=== PATIENT | female | born 1965 | race Caucasian/White ===

== ENCOUNTER 2022-06-02 08:55 | Day surgery (SDC) | payer BC, OTHER ==
[2022-05-31 15:31] VITALS: BMI 25.4
[~2022-06-02 08:55] MED LIST: LACTATED RINGERS 1,000 ML IV SCH
[2022-06-02 09:58] VITALS: TEMP 98.3
[2022-06-02] MEDS ORDERED: PROPOFOL 10 MG/ML 20 ML VIAL IV ONE (10:48)
--- NOTE | 2022-06-02 11:15 | P.PCN ---
Date of Procedure: 06/02/22 Procedure(s) Performed: BRIEF HISTORY: Patient is a 56-year-old pleasant white female scheduled for an elective colonoscopy as a part of screening for colon cancer and family history of colon cancer diagnosed in her father. PROCEDURE PERFORMED: Colonoscopy. PREOPERATIVE DIAGNOSIS: Screening for colon cancer/family history of colon cancer IV sedation per Anesthesia. PROCEDURE: After informed consent was obtained, the patient, was brought into the endoscopy unit. IV sedation was administered by Anesthesia under continuous monitoring. Digital rectal examination was normal. Initially the Olympus CF-160 flexible video colonoscope was then inserted in the rectum, gradually advanced into the cecum without any difficulty. Careful examination was performed as the scope was gradually being withdrawn. Ileocecal valve and the appendiceal orifice were visualized and appeared normal. Prep was some areas of the colon. Mucosa of the cecum, ascending colon, transverse colon, descending colon, sigmoid colon, and rectum appeared normal. Retroflexion was performed in the rectum and no lesions were seen. The patient tolerated the procedure well. IMPRESSION: Normal-appearing colon from rectum to cecum with no evidence of colorectal neoplasia. RECOMMENDATIONS: Findings of this examination were discussed with the patient as well as a family.. She was advised to have a repeat colonoscopy in 5 years from now because of family history of colon cancer
[2022-06-02 11:20] VITALS: RESP 16
[2022-06-02 11:40] VITALS: BP 95/51; PULSE 71
== END 2022-06-02 12:15 | disposition home or self-care (01) ==
LOC: ORWHC2ENDO 08:55
PROVIDERS: ATTEND Internal Medicine Gastroenterology
DX: Z12.11 Encounter for screening for malignant neoplasm of colon (principal); F39 Unspecified mood [affective] disorder; Z79.82 Long term (current) use of aspirin; Z79.899 Other long term (current) drug therapy; Z80.0 Family history of malignant neoplasm of digestive organs
CPT/HCPCS: 45378; J2704

== ENCOUNTER 2024-11-26 18:43 | Inpatient (IN) | payer BC, OTHER ==
--- NOTE | 2024-11-26 19:03 | ED ---
General Adult HPI - General Chief complaint: Recheck/Abnormal Lab/Rx Stated complaint: ABN Labs Time Seen by Provider: 11/26/24 18:50 Source: patient, RN notes reviewed, old records reviewed - History of Present Illness Initial comments: This is a 58-year-old female who presents emergency department stating that she has had about 3 months of feeling a little short of breath so she finally went to Dr. Ramos. Dr. Ramos ordered a CAT scan and it showed a saddle pulmonary embolism with bilateral pulmonary emboli. Patient was told to come to the emergency department immediately. Patient states she walked 6500 steps today she only feels a little short of breath but she does not feel bad at all she has no chest pain no palpitations patient denies any fever chills. - Related Data Home Medications Medication Instructions Recorded Confirmed Aspirin [Adult Low Dose Aspirin EC] 81 mg PO DAILY 06/07/16 06/02/22 Escitalopram [Lexapro] 10 mg PO DAILY 06/07/16 06/02/22 Multivitamins, Thera [Multivitamin] 1 tab PO DAILY 06/07/16 06/02/22 Trospium Chloride [Sanctura] 20 mg PO DAILY 06/07/16 06/02/22 estradioL [Imvexxy] 4 mcg VAGINAL TUFR 05/31/22 06/02/22 Allergies Allergy/AdvReac Type Severity Reaction Status Date / Time morphine AdvReac Itching Verified 11/26/24 18:50 Review of Systems ROS Statement: Those systems with pertinent positive or pertinent negative responses have been documented in the HPI. ROS Other: All systems not noted in ROS Statement are negative. Past Medical History Past Medical History: No Reported History History of Any Multi-Drug Resistant Organisms: None Reported Past Surgical History: Section, Hysterectomy Additional Past Surgical History / Comment(s): Jaw surgery; BILAT plantar fascitis, COLONOSCOPY, LT BUNIONECTOMY Past Anesthesia/Blood Transfusion Reactions: Motion Sickness Past Psychological History: Depression Smoking Status: Never smoker - Past Family History Mother Family Medical History: Cancer General Exam - General Exam Comments Initial Comments: GENERAL: Patient is well-developed and well-nourished. Patient is nontoxic and well- hydrated and is in no acute distress. ENT: Neck is soft and supple. No significant lymphadenopathy is noted. Oropharynx is clear. Moist mucous membranes. Neck has full range of motion without eliciting any pain. EYES: The sclera were anicteric and conjunctiva were pink and moist. Extraocular movements were intact and pupils were equal round and reactive to light. Eyelids were unremarkable. PULMONARY: Unlabored respirations. Good breath sounds bilaterally. No audible rales rhonchi or wheezing was noted. CARDIOVASCULAR: There is a regular rate and rhythm without any murmurs gallops or rubs. ABDOMEN: Soft and nontender with normal bowel sounds. SKIN: Skin is clear with no lesions or rashes and otherwise unremarkable. NEUROLOGIC: Patient is alert and oriented x3. Cranial nerves II through XII are grossly intact. Motor and sensory are also intact. Normal speech, volume and content. Symmetrical smile. MUSCULOSKELETAL: Normal extremities with adequate strength and full range of motion. No lower extremity swelling or edema. No calf tenderness. LYMPHATICS: No significant lymphadenopathy is noted PSYCHIATRIC: Normal psychiatric evaluation. Course Vital Signs 11/26/24 11/26/24 11/26/24 18:45 18:50 19:08 Temperature 97.8 F Pulse Rate 102 H 86 Respiratory 18 20 18 Rate Blood Pressure 150/83 139/69 O2 Sat by Pulse 95 98 Oximetry 11/26/24 19:23 Temperature Pulse Rate 84 Respiratory 18 Rate Blood Pressure 139/69 O2 Sat by Pulse 99 Oximetry Medical Decision Making - Medical Decision Making EKG is interpreted by myself and EKG shows a sinus rhythm at 87 bpm OR was on 44 QRS is 96 QT interval 368 QTc is 412. Patient's EKG shows no ST segment elevat ion or depression. Was pt. sent in by a medical professional or institution (, PA, [employer], urgent ca re, hospital, or penitentiary...) When possible be specific @ -No Did you speak to anyone other than the patient for history (EMS, parent, family, police, friend...)? What history was obtained from this source @ -No Did you review nursing and triage notes (agree or disagree)? Why? @ -I reviewed and agree with nursing and triage notes Were old charts reviewed (outside hosp., previous admission, EMS record, old EKG, old radiological studies, urgent care reports/EKG's, penitentiary records)? Report findings @ -No old charts were reviewed Differential Diagnosis? @ -Differential Dyspnea: Coronary syndrome, arrhythmia, tamponade, asthma, COPD, pulmonary embolism, pneumonia, pneumothorax, pulmonary effusion, anaphylaxis, diabetic ketoacidosis, flailed chest, pulmonary contusion, diaphragmatic rupture, anemia, neuromuscular, this is not meant to be an all-inclusive list. EKG interpreted by me (3pts min.). @ -As above X-rays interpreted by me (1pt min.). @ -None done CT interpreted by me (1pt min.). @ -None done U/S interpreted by me (1pt. min.). @ -None done What testing was considered but not performed or refused? (CT, X-rays, U/S, labs)? Why? @ -None What meds were considered but not given or refused? Why? @ -None Did you discuss the management of the patient with other professionals (professionals i.e. , PA, [employer], lab, RT, psych nurse, social media designer, lawyer real estate, teacher, commercial loan collection officer, correctional case manager)? Give summary @ -I discussed this case with the significant hospitalist and they agreed to admit the patient Was smoking cessation discussed for >3mins.? @ -No Was critical care preformed (if so, how long)? @ -35 minutes Were there social determinants of health that impacted care today? How? (Homelessness, low income, unemployed, alcoholism, drug addiction, transportation, low edu. Level, literacy, decrease access to med. care, assisted, rehab)? @ -No Was there de-escalation of care discussed even if they declined (Discuss DNR or withdrawal of care, Hospice)? DNR status @ -No What co-morbidities impacted this encounter? (DM, HTN, Smoking, COPD, CAD, Cancer, CVA, ARF, Chemo, Hep., AIDS, mental health diagnosis, sleep apnea, morbid obesity)? @ -None Was patient admitted / discharged? Hospital course, mention meds given and route, prescriptions, significant lab abnormalities, going to OR and other pertinent info. @ -I reviewed the patient's outpatient CAT scan that showed bilateral PEs with a saddle embolus. Patient was having only minimal symptoms. Patient received high dose heparin I admitted the patient to [facility] hospice with a consult to vascular surgery Undiagnosed new problem with uncertain prognosis? @ -No Drug Therapy requiring intensive monitoring for toxicity (Heparin, Nitro, Insulin, Cardizem)? @ -No Were any procedures done? @ -No Diagnosis/symptom? @ -Pulmonary embolism Acute, or Chronic, or Acute on Chronic? @ -Acute Uncomplicated (without systemic symptoms) or Complicated (systemic symptoms)? @ -Complicated Side effects of treatment? @ -No Exacerbation, Progression, or Severe Exacerbation? @ -No Poses a threat to life or bodily function? How? (Chest pain, [place], [place], pneumonia, PE, COPD, DKA, ARF, appy, cholecystitis, CVA, Diverticulitis, Homicidal, Suicidal, threat to staff... and all critical care pts) @ -Yes this can lead to endorgan dysfunction - Lab Data Result diagrams: 11/26/24 18:57 11/26/24 18:57 Lab Results 11/26/24 11/26/24 11/26/24 Range/Units 18:57 18:57 18:57 WBC 4.72 (4.50-10.00) 10*3/uL RBC 4.72 (4.10-5.20) 10*6/uL Hgb 12.1 (12.0-15.0) g/dL Hct 37.8 (37.2-46.3) % MCV 80.1 (80.0-97.0) fL MCH 25.6 L (27.0-32.0) pg MCHC 32.0 (32.0-37.0) g/dL Plt Count 103 L (140-440) 10*3/uL MPV 10.8 (9.5-12.2) fL Immature Gran % (Auto) 0.4 % Neutrophils % 47.8 % Lymphocytes % 32.2 % Monocytes % 11.7 % Eosinophils % 6.4 % Basophils % 1.5 % Immature Gran # 0.02 (0.00-0.04) 10*3/uL Neutrophils # 2.26 (1.80-7.70) 10*3/uL Lymphocytes # 1.52 (0.90-5.00) 10*3/uL Monocytes # 0.55 (0.20-1.00) 10*3/uL Eosinophils # 0.30 (0.04-0.35) 10*3/uL Basophils # 0.07 (0.00-0.10) 10*3/uL PT 10.6 (10.0-12.5) sec INR 0.9 (<1.2) APTT 25.7 (22.0-30.0) sec Sodium 138 (137-145) mmol/L Potassium 3.6 (3.5-5.1) mmol/L Chloride 105 (98-107) mmol/L Carbon Dioxide 26 (22-30) mmol/L Anion Gap 7 mmol/L BUN 13 (7-17) mg/dL Creatinine 0.77 (0.52-1.04) mg/dL Est GFR (CKD-EPI)AfAm >90 (>60 ml/min/1.73 sqM) Est GFR (CKD-EPI)NonAf 86 (>60 ml/min/1.73 sqM) Glucose 92 (74-99) mg/dL Plasma Lactic Acid Noel (0.7-2.0) mmol/L Calcium 9.1 (8.4-10.2) mg/dL Total Bilirubin 0.4 (0.2-1.3) mg/dL AST 28 (14-36) U/L ALT 16 (4-34) U/L Alkaline Phosphatase 79 (38-126) U/L Troponin I (0.000-0.034) ng/mL Total Protein 7.0 (6.3-8.2) g/dL Albumin 4.2 (3.5-5.0) g/dL 11/26/24 11/26/24 Range/Units 18:57 18:57 WBC (4.50-10.00) 10*3/uL RBC (4.10-5.20) 10*6/uL Hgb (12.0-15.0) g/dL Hct (37.2-46.3) % MCV (80.0-97.0) fL MCH (27.0-32.0) pg MCHC (32.0-37.0) g/dL Plt Count (140-440) 10*3/uL MPV (9.5-12.2) fL Immature Gran % (Auto) % Neutrophils % % Lymphocytes % % Monocytes % % Eosinophils % % Basophils % % Immature Gran # (0.00-0.04) 10*3/uL Neutrophils # (1.80-7.70) 10*3/uL Lymphocytes # (0.90-5.00) 10*3/uL Monocytes # (0.20-1.00) 10*3/uL Eosinophils # (0.04-0.35) 10*3/uL Basophils # (0.00-0.10) 10*3/uL PT (10.0-12.5) sec INR (<1.2) APTT (22.0-30.0) sec Sodium (137-145) mmol/L Potassium (3.5-5.1) mmol/L Chloride (98-107) mmol/L Carbon Dioxide (22-30) mmol/L Anion Gap mmol/L BUN (7-17) mg/dL Creatinine (0.52-1.04) mg/dL Est GFR (CKD-EPI)AfAm (>60 ml/min/1.73 sqM) Est GFR (CKD-EPI)NonAf (>60 ml/min/1.73 sqM) Glucose (74-99) mg/dL Plasma Lactic Acid Noel 0.7 (0.7-2.0) mmol/L Calcium (8.4-10.2) mg/dL Total Bilirubin (0.2-1.3) mg/dL AST (14-36) U/L ALT (4-34) U/L Alkaline Phosphatase (38-126) U/L Troponin I 0.013 (0.000-0.034) ng/mL Total Protein (6.3-8.2) g/dL Albumin (3.5-5.0) g/dL Disposition Clinical Impression: Pulmonary embolism Disposition: ADMITTED IP TO THIS HOSP Referrals: Stanton Justice DO [Primary Care Provider] - 1-2 days Time of Disposition: 20:37
[2024-11-26 19:16] LABS: Basophils # (A) 0.07 10*3/uL (0.00-0.10); Basophils % (A) 1.5 %; Eosinophils % (A) 6.4 %; HCT 37.8 % (37.2-46.3); HGB 12.1 g/dL (12.0-15.0); Lymphocytes # (A) 1.52 10*3/uL (0.90-5.00); Lymphocytes % (A) 32.2 %; MCH 25.6 pg (27.0-32.0); MCV 80.1 fL (80.0-97.0); Mean Platelet Volume 10.8 fL (9.5-12.2); Monocytes # (A) 0.55 10*3/uL (0.20-1.00); Monocytes % (A) 11.7 %; Neutrophils # (A) 2.26 10*3/uL (1.80-7.70); Neutrophils % (A) 47.8 %; Platelet Count 103 10*3/uL (140-440); RBC 4.72 10*6/uL (4.10-5.20); RDW 15.6 % (11.5-14.5); WBC 4.72 10*3/uL (4.50-10.00)
[2024-11-26 19:25] LABS: INR 0.9 (<1.2); Partial Thromboplastin Time 25.7 sec (22.0-30.0); Prothrombin Time 10.6 sec (10.0-12.5)
[2024-11-26 19:29] LABS: ALT 16 U/L (4-34); AST 28 U/L (14-36); African American GFR (CKD) >90 (>60 ml/min/1.73 sqM); Albumin 4.2 g/dL (3.5-5.0); Alkaline Phosphatase 79 U/L (38-126); Anion Gap 7 mmol/L; Blood Urea Nitrogen 13 mg/dL (7-17); Calcium 9.1 mg/dL (8.4-10.2); Carbon Dioxide 26 mmol/L (22-30); Chloride 105 mmol/L (98-107); Glucose 92 mg/dL (74-99); Non-African American GFR(CKD) 86 (>60 ml/min/1.73 sqM); Potassium 3.6 mmol/L (3.5-5.1); Sodium 138 mmol/L (137-145); Total Bilirubin 0.4 mg/dL (0.2-1.3)
[2024-11-26] MEDS: HEPARIN SOD,PORK IN 0.45% NACL 25,000 UNIT in 0.45% NACL 1 250ML.BAG IV SCH (19:32)
[2024-11-26] MEDS: HEPARIN SODIUM 1,000 UN/ML (10ML VL) IV ONE (19:34)
[2024-11-26] MEDS: SODIUM CHLORIDE 0.9% 1,000 ML IV ONE (21:01)
--- NOTE | 2024-11-27 12:10 | US ---
EXAMINATION TYPE: US venous doppler duplex LE BI DATE OF EXAM: 11/27/2024 11:41 AM COMPARISON: NONE CLINICAL INDICATION: Female, 58 years old with history of PE; On IV heparin, Pain TECHNIQUE: The lower extremity deep venous system is examined utilizing real time linear array sonog tali with graded compression, color doppler sonography, and spectral doppler. SIDE PERFORMED: Bilateral FINDINGS: VESSELS IMAGED: Common Femoral Vein Deep Femoral Vein Greater Saphenous Vein * Femoral Vein Popliteal Vein Small Saphenous Vein * Proximal Calf Veins (* superficial vessels) Right Leg: Positive for DVT in the popliteal vein to calf veins. Color Doppler imaging shows patency of the vessels. Spectral waveforms are within normal limits. Left Leg: Positive for DVT in the popliteal vein with thready flow seen, Color Doppler imaging shows patency of the vessels. Spectral waveforms are within normal limits. IMPRESSION: Acute DVT is in the popliteal veins bilaterally extending into the posterior tibial veins. There is i nvolvement of the proximal popliteal vein on the right with complete occlusion above the knee noted. [facility], , 11/27/2024 12:07 PM
--- NOTE | 2024-11-27 12:17 | P.CRDCN ---
History of Present Illness Consult date: 11/27/24 Reason for Consult (text): Pulmonary embolism. History of present illness: This is a 58-year-old female with no previous cardiac history and does not follow with a svp of digital. We have been asked to evaluate the patient for pulmonary embolism. Patient gives history that she had hip replacement surgery done in June 2020 for and she states that since August when she was working with physical therapy she developed shortness of breath. She states she was having difficulty walking due to the shortness of breath. No chest pain or chest pressure no chest tightness. Dr. Rae ordered CTA of the chest which found bilateral pulmonary emboli with saddle embolus. Patient was admitted to the hospital and started on heparin drip. She denies shortness of breath at rest. No dizziness or lightheadedness. Blood pressure 113/73, heart rate 68, pulse ox 96% on room air. Patient is a non-smoker, no alcohol abuse. -EKG: Sinus rhythm with no acute ST-T wave changes. No evidence of right heart strain. -Venous duplex bilateral lower extremities showed acute DVT in the popliteal veins bilaterally. -Laboratory studies: Platelet count 103 otherwise lab work is unremarkable. Troponin is negative x 1. -Home cardiac medications: None Review Of Systems: At the time of my exam: CONSTITUTIONAL: Denies fever or chills. HEENT: Denies blurred vision, vision changes, or eye pain. Denies hemoptysis CARDIOVASCULAR: Denies chest pain. Denies orthopnea. Denies PND. Denies palpitations RESPIRATORY: Denies shortness of breath. Reports dyspnea on exertion GASTROINTESTINAL: Denies abdominal pain. Denies nausea or vomiting. HEMATOLOGIC: Denies bleeding disorders. GENITOURINARY: Denies any blood in urine. SKIN: Denies puritis. Denies rash. Physical examination: Gen: This is a 58-year-old female in no acute distress VS: reviewed HEENT: Head is atraumatic, normocephalic. Pupils equal, round. Sclerae is anicteric. NECK: Supple. No JVD. LUNGS: Clear to auscultation. No wheezes or rhonchi. No intercostal retractions. HEART: Regular rate and rhythm. No murmur. ABDOMEN: Soft No tenderness. EXTREMITIES: No pedal edema. No calf tenderness. NEUROLOGICAL: Patient is awake, alert and oriented x3. Assessment: Bilateral saddle PE Bilateral lower extremity DVT Recent hip surgery Plan: Continue heparin drip Consult pulmonary medicine Obtain 2-D echocardiogram and Doppler study to assess for right heart strain Further recommendations to follow based upon clinical course Thank you kindly for this consultation. Nurse practitioner note has been reviewed, I agree with documented findings and plan of care. Patient was seen and examined. Past Medical History Past Medical History: No Reported History History of Any Multi-Drug Resistant Organisms: None Reported Past Surgical History: Section, Hysterectomy, Joint Replacement Additional Past Surgical History / Comment(s): Jaw surgery; BILAT plantar fa scitis, COLONOSCOPY, LT BUNIONECTOMY, hip replacement. Past Anesthesia/Blood Transfusion Reactions: Motion Sickness Past Psychological History: Depression Smoking Status: Never smoker Past Alcohol Use History: Occasional Past Drug Use History: None Reported - Past Family History Mother Family Medical History: Cancer Medications and Allergies Home Medications Medication Instructions Recorded Confirmed Type Multivitamins, Thera [Multivitamin] 1 tab PO DAILY 06/07/16 11/27/24 History Trospium Chloride [Sanctura] 20 mg PO DAILY 06/07/16 11/27/24 History Calcium(Unknown Dose) 1 tab PO HS 11/27/24 11/27/24 History Ciclopirox Olamine [Loprox 0.77% 1 applic TOPICAL BID PRN 11/27/24 11/27/24 History cream] Co Q-10(Unknown Dose) 1 cap PO DAILY 11/27/24 11/27/24 History Escitalopram [Lexapro] 10 mg PO DIRECTED 11/27/24 11/27/24 History Fish Oil(Unknown Dose) 1 cap PO DAILY 11/27/24 11/27/24 History Fluocinonide 0.05% Solution 1 applic TOPICAL BID PRN 11/27/24 11/27/24 History Glucosam/Vimal-Msm1/C/Matthew/Bosw 1 tab PO DAILY 11/27/24 11/27/24 History [Glucosamine-Chondroitin Tablet] Magnesium(Unknown Dose) 1 tab PO HS 11/27/24 11/27/24 History Turmeric(Unknown Dose) 1 tab PO DAILY 11/27/24 11/27/24 History Vitamin D3(Unknown Dose) 1 tab PO HS 11/27/24 11/27/24 History estradioL [Vagifem] 10 mcg VAGINAL TUFR 11/27/24 11/27/24 History Allergies Allergy/AdvReac Type Severity Reaction Status Date / Time morphine AdvReac Itching Verified 11/27/24 10:27 Physical Exam Vitals: Vital Signs Temp Pulse Pulse Resp BP BP Pulse Ox 11/27/24 04:00 98 F 78 17 107/67 98 11/27/24 02:26 97.8 F 72 16 131/76 94 L 11/27/24 00:09 67 18 117/65 99 11/26/24 23:07 80 18 126/69 95 11/26/24 21:08 76 18 114/74 95 11/26/24 19:23 84 18 139/69 99 11/26/24 19:08 18 11/26/24 18:50 86 20 139/69 98 11/26/24 18:45 97.8 F 102 H 18 150/83 95 Intake and Output 11/26/24 11/27/24 11/27/24 22:59 06:59 14:59 Intake Total 88.163 Balance 88.163 Intake: Intake, IV Titration 88.163 Amount Heparin Sod,Pork in 0.45% 88.163 NaCl 25,000 unit In 0.45 % NaCl 1 250ml.bag @ 18 UNITS/KG/HR 12.655 mls/hr IV [id number] [facility] Rx#: [id number] Other: # Voids 2 1 Weight 70.307 kg 69.1 kg Results 11/26/24 18:57 11/26/24 18:57 Cardiac Enzymes 11/26/24 11/26/24 Range/Units 18:57 18:57 AST 28 (14-36) U/L Troponin I 0.013 (0.000-0.034) ng/mL Coagulation 11/26/24 11/27/24 Range/Units 18:57 01:31 PT 10.6 (10.0-12.5) sec APTT 25.7 >200.0 H* (22.0-30.0) sec CBC 11/26/24 Range/Units 18:57 WBC 4.72 (4.50-10.00) 10*3/uL RBC 4.72 (4.10-5.20) 10*6/uL Hgb 12.1 (12.0-15.0) g/dL Hct 37.8 (37.2-46.3) % Plt Count 103 L (140-440) 10*3/uL Comprehensive Metabolic Panel 11/26/24 Range/Units 18:57 Sodium 138 (137-145) mmol/L Potassium 3.6 (3.5-5.1) mmol/L Chloride 105 (98-107) mmol/L Carbon Dioxide 26 (22-30) mmol/L BUN 13 (7-17) mg/dL Creatinine 0.77 (0.52-1.04) mg/dL Glucose 92 (74-99) mg/dL Calcium 9.1 (8.4-10.2) mg/dL AST 28 (14-36) U/L ALT 16 (4-34) U/L Alkaline Phosphatase 79 (38-126) U/L Total Protein 7.0 (6.3-8.2) g/dL Albumin 4.2 (3.5-5.0) g/dL Current Medications Generic Name Dose Route Start Last Admin Trade Name Freq PRN Reason Stop Dose Admin Heparin Sodium/Sodium Chloride 250 mls @ 12.655 mls/hr 11/26/24 19:00 11/27/24 04:53 25,000 unit/ Sodium Chloride IV 14 units/kg/hr [id number] [facility] 9.843 mls/hr Titration Protocol 18 UNITS/KG/HR Sodium Chloride 1,000 mls @ 75 mls/hr 11/26/24 20:38 11/26/24 21:01 Saline 0.9% IV 11/27/24 09:57 75 mls/hr .[id number] Administration Intake and Output 11/26/24 11/27/24 11/27/24 22:59 06:59 14:59 Intake Total 88.163 Balance 88.163 Intake: Intake, IV Titration 88.163 Amount Heparin Sod,Pork in 0.45% 88.163 NaCl 25,000 unit In 0.45 % NaCl 1 250ml.bag @ 18 UNITS/KG/HR 12.655 mls/hr IV .[id number] [facility] Rx#: [id number] Other: # Voids 2 1 Weight 70.307 kg 69.1 kg 11/26/24 18:57 11/26/24 18:57
--- NOTE | 2024-11-27 12:47 | P.CNPUL ---
History of Present Illness Consult date: 11/27/24 Requesting physician: Stanton Justice Reason for consult: dyspnea, chest pain, pulmonary embolism, abnormal CXR/CT Chief complaint: Shortness of breath, pain on inspiration. History of present illness: Pulmonary consult dated November 27, 2024. 58-year-old female who was seen by my partner, and sent to the hospital for a CT scan, to rule out pulmonary embolism. The patient has a history of about 3 months worth of increasing shortness of breath, particular on exertion, and pain sometimes sharp, deep inspiration. The CT scan did not show pulmonary embolism, and the patient was admitted to the hospital, started on IV heparin. The ER physician called me yesterday, because initially, they were going to place the patient in the intensive care unit, but after listening to the story, it was clear to me the patient was stable to be admitted to the cardiology floor. Currently, the patient is resting comfortably in room 378. She is on room air. He has an IV running with IV heparin. She denies any shortness of breath, currently, states that the pain when she takes a deep breath, in her chest, has completely gone away. Interestingly, the patient recently had hip surgery, and also recently took 2 long car rides, to see a family member in [place]. Hence, this pulmonary embolism, is likely provoked, from the hip surgery, and due to long car rides. In addition, the patient tells me she really has no significant past medical history. She recently was seen by her family doctor, a nd treated with breathing treatments, and steroids, without benefit in her shortness of breath. She is a lifelong non-smoker. Current laboratory data includes a white count of 4.7, hemoglobin 12.1, hematocrit 37.8, and a platelet count of 103,000. PTT is 74.1. Her comprehensive metabolic profile is completely normal. Venous Doppler studies of both lower extremities, or both positive for DVT. Chest x-ray was negative. CTA showed bilateral pulmonary emboli, with saddle embolus, no evidence for right heart strain. The patient has been seen by cardiology, and an echocardiogram is currently pending. Review of Systems REVIEW OF SYSTEMS: CONSTITUTIONAL: [Negative.] NEUROLOGIC: [ Negative.] HEENT: [ Negative.] CARDIAC: Chest pain on deep inspiration. PULMONARY: Shortness of breath. Shortness of breath was noted primarily on exertion. GI: [Negative.] : [Negative.] RHEUMATOLOGIC: [ Negative.] IMMUNOLOGIC: [ Negative.] ENDOCRINE: [Negative. ] DERMATOLOGIC: [Negative.] Past Medical History Past Medical History: No Reported History History of Any Multi-Drug Resistant Organisms: None Reported Past Surgical History: Section, Hysterectomy, Joint Replacement Additional Past Surgical History / Comment(s): Jaw surgery; BILAT plantar fascitis, COLONOSCOPY, LT BUNIONECTOMY, hip replacement. Past Anesthesia/Blood Transfusion Reactions: Motion Sickness Past Psychological History: Depression Smoking Status: Never smoker Past Alcohol Use History: Occasional Past Drug Use History: None Reported - Past Family History Mother Family Medical History: Cancer Medications and Allergies Home Medications Medication Instructions Recorded Confirmed Type Multivitamins, Thera [Multivitamin] 1 tab PO DAILY 06/07/16 11/27/24 History Trospium Chloride [Sanctura] 20 mg PO DAILY 06/07/16 11/27/24 History Calcium(Unknown Dose) 1 tab PO HS 11/27/24 11/27/24 History Ciclopirox Olamine [Loprox 0.77% 1 applic TOPICAL BID PRN 11/27/24 11/27/24 History cream] Co Q-10(Unknown Dose) 1 cap PO DAILY 11/27/24 11/27/24 History Escitalopram [Lexapro] 10 mg PO DIRECTED 11/27/24 11/27/24 History Fish Oil(Unknown Dose) 1 cap PO DAILY 11/27/24 11/27/24 History Fluocinonide 0.05% Solution 1 applic TOPICAL BID PRN 11/27/24 11/27/24 History Glucosam/Vimal-Msm1/C/Matthew/Bosw 1 tab PO DAILY 11/27/24 11/27/24 History [Glucosamine-Chondroitin Tablet] Magnesium(Unknown Dose) 1 tab PO HS 11/27/24 11/27/24 History Turmeric(Unknown Dose) 1 tab PO DAILY 11/27/24 11/27/24 History Vitamin D3(Unknown Dose) 1 tab PO HS 11/27/24 11/27/24 History estradioL [Vagifem] 10 mcg VAGINAL TUFR 11/27/24 11/27/24 History Allergies Allergy/AdvReac Type Severity Reaction Status Date / Time morphine AdvReac Itching Verified 11/27/24 10:27 Physical Exam Osteopathic Statement: *. No significant issues noted on an osteopathic structural exam other than those noted in the History and Physical/Consult. Vitals: Vital Signs Temp Pulse Pulse Resp BP BP Pulse Ox 11/27/24 11:37 68 17 113/73 96 11/27/24 08:25 98 F 80 18 123/78 97 11/27/24 04:00 98 F 78 17 107/67 98 11/27/24 02:26 97.8 F 72 16 131/76 94 L 11/27/24 00:09 67 18 117/65 99 11/26/24 23:07 80 18 126/69 95 11/26/24 21:08 76 18 114/74 95 11/26/24 19:23 84 18 139/69 99 11/26/24 19:08 18 11/26/24 18:50 86 20 139/69 98 11/26/24 18:45 97.8 F 102 H 18 150/83 95 Intake and Output 11/26/24 11/27/24 11/27/24 22:59 06:59 14:59 Intake Total 88.163 63.815 Balance 88.163 63.815 Intake: Intake, IV Titration 88.163 63.815 Amount Heparin Sod,Pork in 0.45% 88.163 63.815 NaCl 25,000 unit In 0.45 % NaCl 1 250ml.bag @ 18 UNITS/KG/HR 12.655 mls/hr IV .[id number] [facility] Rx#: [id number] Other: # Voids 2 1 Weight 70.307 kg 69.1 kg No acute distress, oriented 3. HEENT examination is grossly unremarkable. Mucous membranes are moist. No oral lesions. Neck supple. Full range of motion. No adenopathy thyromegaly or neck vein distention. Cardiovascular examination reveals regular rhythm rate. S1-S2 normal. No S3 or S4. No discernible murmur noted. Lungs reveal clear breath sounds. Breath sounds are equal bilaterally. No adventitious lung sounds including wheezes rhonchi or crackles. Abdomen soft bowel sounds are heard. No masses or tenderness. Extremities are intact. No cyanosis clubbing or edema. Skin is without rash or lesion. Neurologic examination is brief but nonfocal. Results - Laboratory Findings CBC and BMP: 11/26/24 18:57 11/26/24 18:57 PT/INR, D-dimer PT 10.6 sec (10.0-12.5) 11/26/24 18:57 INR 0.9 (<1.2) 11/26/24 18:57 Abnormal lab findings: Abnormal Labs 11/26/24 11/27/24 11/27/24 18:57 01:31 10:32 MCH 25.6 L Plt Count 103 L APTT >200.0 H* 74.1 H - Diagnostic Findings Chest x-ray: image reviewed CT scan - chest: image reviewed U/S of Legs: image reviewed Assessment and Plan Assessment: Subacute/chronic shortness of breath, and chest pain on deep inspiration, las ting 3 months, secondary to bilateral pulmonary emboli. Bilateral lower extremity DVTs. Recent hip surgery. 2 recent car rides to [place]. History of depression. Lifelong non-smoker Plan: Plan dated November 27, 2024. The patient was seen today in room 378. She was seen by my partner, and sent over for CT angiogram, and with a CT angiogram was read by radiology, and showed bilateral pulmonary emboli, and saddle pulmonary embolism, the patient was directed to the emergency department. Dr. Ambrocio called me and talk to me about this patient. The patient was admitted to the 3 S. floor. The patient is currently on an IV heparin drip. She is really feeling much better. The cecilia meyer's Doppler that we ordered this morning, showed bilateral DVT. The patient was recently on a car ride to [place] twice, to see a family member. In addition, she states that in June, she had hip surgery. She has been having shortness of breath on exertion, and pain on deep inspiration, for about 3 months. Labs, x-rays, medications are reviewed. We will continue to follow. The patient will follow-up with my partner after discharge. Cardiology has seen the patient. Echocardiogram is pending. CTA did not reveal any right heart strain. Time with Patient: Greater than 30
--- NOTE | 2024-11-27 16:15 | P.HPIM ---
History of Present Illness H&P Date: 11/27/24 Patient is a 58-year-old female with no significant past medical history has been feeling short of breath from last 4 to 5 months and eventually decided to see oil operator Dr. Ramos who order CTA of the chest which was positive for bilateral pulmonary emboli with saddle embolus. Patient reports that she had a right hip surgery done in June 2024 and and more recently she had a long drive close to almost 9 hours in October 2024. Patient otherwise reports no swelling in lower legs. She reports no chest pain, nausea, vomiting, dizziness, acute vision changes. She reports no prior history of DVT, family history of DVT and never been on blood thinners. Initial laboratory workup shows WBC 4.72, hemoglobin 12.1, platelet count 103, sodium 138, potassium 3.6, BUN 30, creatinine 0.77. EKG shows normal sinus rhythm with ventricular rate of 87 bpm, DC interval 144 ms, QRS duration 96 ms, QTc 412. Venous Doppler history shows positive for DVT in popliteal vein in both right lower extremities. Review of systems: Pertinent positives and negatives as discussed in HPI, a complete review of systems was performed and all other systems are negative. Physical examination: Vital signs reviewed General: non toxic, no distress, appears at stated age, normal weight Derm: no unusual rashes/lesions, warm Head: atraumatic, normocephalic, symmetric Eyes: EOMI, no lid lag, anicteric sclera, pupils equal round reactive to light ENT: Nose and ears atraumatic Neck: No cervical lymphadenopathy, trachea midline, supple Mouth: no lip lesion, mucus membranes moist Cardiovascular: S1S2 reg, no murmur, positive dorsalis pedis pulse bilateral, no edema Lungs: CTA bilateral, no rhonchi, no rales, no accessory muscle use Abdominal: soft, nontender to palpation, no guarding Ext: muscle strength 5 out of 5 in all 4 extremities grossly, no gross muscle atrophy, no contractures, Neuro: CN II-XI grossly intact, no gross focal neuro deficits Psych: Alert, oriented, appropriate affect Assessment/Plan: This is a Patient is a 58-year-old female with no significant past medical history has been feeling short of breath from last 4 to 5 months and eventually decided to see oil operator Dr. Ramos who order CTA of the chest which was positive for bilateral pulmonary emboli with saddle embolus. . Case was discussed with the Emergency Room provider and decision was made to admit the patient for non massive pulm embolism Labs and images: CTA of the chest which was positive for bilateral pulmonary emboli with saddle embolus Initial laboratory workup shows WBC 4.72, hemoglobin 12.1, platelet count 103, sodium 138, potassium 3.6, BUN 30, creatinine 0.77. EKG shows normal sinus rhythm with ventricular rate of 87 bpm, DC interval 144 ms, QRS duration 96 ms, QTc 412. Venous Doppler shows positive for DVT in popliteal vein in both right lower extremities. Active: #Non massive pulm embolism likely provoked in the setting of recent history of right hip surgery and long drive CTA of the chest and venous Doppler of lower extremities results as above Start patient on a heparin drip with transition to oral anticoagulation tomorrow Pulmonology on board Patient is hemodynamic stable Order echocardiogram #History of anxiety and depression, Resume Lexapro DVT prophylaxis: IV heparin GI prophylaxis: None F: None E: Replete as needed N: Moderately diet A: Ambulatory at baseline The patient is admitted with an anticipated less than than 2 midnight stay for evaluation of pulm embolism CODE STATUS: Full code Discussed with: Patient Anticipated discharge place: Home Dictation was produced using [employer] dictation software. Please excuse any grammatical, word or spelling errors. Dr. Paz seen patient with resident, present during exam, and agreed with findings. Past Medical History Past Medical History: No Reported History History of Any Multi-Drug Resistant Organisms: None Reported Past Surgical History: Section, Hysterectomy, Joint Replacement Additional Past Surgical History / Comment(s): Jaw surgery; BILAT plantar fascitis, COLONOSCOPY, LT BUNIONECTOMY, hip replacement. Past Anesthesia/Blood Transfusion Reactions: Motion Sickness Past Psychological History: Depression Smoking Status: Never smoker Past Alcohol Use History: Occasional Past Drug Use History: None Reported - Past Family History Mother Family Medical History: Cancer Medications and Allergies Home Medications Medication Instructions Recorded Confirmed Type Multivitamins, Thera [Multivitamin] 1 tab PO DAILY 06/07/16 11/27/24 History Trospium Chloride [Sanctura] 20 mg PO DAILY 06/07/16 11/27/24 History Calcium(Unknown Dose) 1 tab PO HS 11/27/24 11/27/24 History Ciclopirox Olamine [Loprox 0.77% 1 applic TOPICAL BID PRN 11/27/24 11/27/24 History cream] Co Q-10(Unknown Dose) 1 cap PO DAILY 11/27/24 11/27/24 History Escitalopram [Lexapro] 10 mg PO DAILY 11/27/24 11/27/24 History Fish Oil(Unknown Dose) 1 cap PO DAILY 11/27/24 11/27/24 History Fluocinonide 0.05% Solution 1 applic TOPICAL BID PRN 11/27/24 11/27/24 History Glucosam/Vimal-Msm1/C/Matthew/Bosw 1 tab PO DAILY 11/27/24 11/27/24 History [Glucosamine-Chondroitin Tablet] Magnesium(Unknown Dose) 1 tab PO HS 11/27/24 11/27/24 History Turmeric(Unknown Dose) 1 tab PO DAILY 11/27/24 11/27/24 History Vitamin D3(Unknown Dose) 1 tab PO HS 11/27/24 11/27/24 History estradioL [Vagifem] 10 mcg VAGINAL TUFR 11/27/24 11/27/24 History Allergies Allergy/AdvReac Type Severity Reaction Status Date / Time morphine AdvReac Itching Verified 11/27/24 10:27 Physical Exam Vitals: Vital Signs Temp Pulse Pulse Resp BP BP Pulse Ox 11/27/24 04:00 98 F 78 17 107/67 98 11/27/24 02:26 97.8 F 72 16 131/76 94 L 11/27/24 00:09 67 18 117/65 99 11/26/24 23:07 80 18 126/69 95 11/26/24 21:08 76 18 114/74 95 11/26/24 19:23 84 18 139/69 99 11/26/24 19:08 18 11/26/24 18:50 86 20 139/69 98 11/26/24 18:45 97.8 F 102 H 18 150/83 95 Intake and Output 11/26/24 11/27/24 11/27/24 22:59 06:59 14:59 Intake Total 88.163 Balance 88.163 Intake: Intake, IV Titration 88.163 Amount Heparin Sod,Pork in 0.45% 88.163 NaCl 25,000 unit In 0.45 % NaCl 1 250ml.bag @ 18 UNITS/KG/HR 12.655 mls/hr IV .[id number] [facility] Rx#: [id number] Other: # Voids 2 Weight 70.307 kg 69.1 kg Results CBC & Chem 7: 11/26/24 18:57 11/26/24 18:57 Labs: Abnormal Lab Results - Last 24 Hours (Table) 11/26/24 11/27/24 Range/Units 18:57 01:31 MCH 25.6 L (27.0-32.0) pg Plt Count 103 L (140-440) 10*3/uL APTT >200.0 H* (22.0-30.0) sec Thrombosis Risk Factor Assmnt - Choose All That Apply Any of the Below Risk Factors Present?: Yes Each Factor Represents 1 point: Age 41-60 years Other Risk Factors: No Other congenital or acquired thrombophilia - If yes, enter type in comment: No Thrombosis Risk Factor Assessment Total Risk Factor Score: 1 Thrombosis Risk Factor Assessment Level: Low Risk
--- NOTE | 2024-11-27 16:35 | CA ---
Transthoracic Echo Report Name: Vicki Mendez Age: 58 Gender: F : 1965 Exam Date: 11/27/2024 12:01 Exam Location: [facility] Ht (in): 65 Wt (lb): 152 Ordering Physician: Dalia Pimentel Attending/Referring Phys: [id number], Loren Medical Technologist Generalist Deniz Armenta RDCS Procedure CPT: Indications: saddle PE, right heart strain Cardiac Hx: Technical Quality: Good Contrast 1: Total Dose (mL): Contrast 2: Total Dose (mL): MEASUREMENTS (Male / Female) Normal Values 2D ECHO LV Diastolic Diameter PLAX 3.6 cm 4.2 - 5.9 / 3.9 - 5.3 cm LV Systolic Diameter PLAX 2.2 cm IVS Diastolic Thickness 0.9 cm 0.6 - 1.0 / 0.6 - 0.9 cm LVPW Diastolic Thickness 0.9 cm 0.6 - 1.0 / 0.6 - 0.9 cm LV Relative Wall Thickness 0.5 RV Internal Dim ED PLAX 3.4 cm LVOT Diameter 1.8 cm LV Diastolic Volume MOD BP 84.9 cm??? 67 - 155 / 56 - 104 cm??? LV Systolic Volume MOD BP 32.6 cm??? 22 - 58 / 19 - 49 cm??? LV Ejection Fraction MOD BP 61.6 % >= 55 % LV Cardiac Index MOD BP 2133.9 cm???/min???m??? LV Diastolic Volume MOD 4C 83.6 cm??? LV Systolic Volume MOD 4C 32.0 cm??? LV Ejection Fraction MOD 4C 61.7 % LV Cardiac Index MOD 4C 2103.2 cm???/min???m??? LV Diastolic Length 4C 8.0 cm LV Systolic Length 4C 6.1 cm LV Diastolic Volume MOD 2C 86.2 cm??? LV Systolic Volume MOD 2C 32.0 cm??? LV Ejection Fraction MOD 2C 62.9 % LV Cardiac Index MOD 2C 2211.6 cm???/min???m??? LV Diastolic Length 2C 7.9 cm LV Systolic Length 2C 6.4 cm LA Volume 53.7 cm??? 18 - 58 / 22 - 52 cm??? LA Volume Index 30.0 cm???/m??? 16 - 28 cm???/m??? DOPPLER MV Area PHT 3.0 cm??? Mitral E Point Velocity 56.1 cm/s Mitral A Point Velocity 43.1 cm/s Mitral E to A Ratio 1.3 MV Deceleration Time 253.7 ms TR Peak Velocity 261.5 cm/s TR Peak Gradient 27.3 mmHg Right Atrial Pressure 5.0 mmHg Pulmonary Artery Systolic Pressu 32.3 mmHg Right Ventricular Systolic Press 32.3 mmHg FINDINGS Left Ventricle Left ventricular ejection fraction is estimated at 60-65 %. Normal Left ventricular size, wall thickness, systolic function with no obvious regional wall motion abnormalities Right Ventricle Normal right ventricular size and function. Right ventricular systolic pressure within normal limits. Right Atrium Normal right atrial size. Left Atrium Mildly increased left atrial volume. Mitral Valve Mitral annular calcification. No mitral stenosis. Trace mitral regurgitation. Aortic Valve Trileaflet aortic valve. Thickened aortic valve without stenosis. No aortic stenosis. No aortic regurgitation. Tricuspid Valve Structurally normal tricuspid valve. No tricuspid stenosis. Mild tricuspid regurgitation. Pulmonic Valve Structurally normal pulmonic valve. No pulmonic stenosis. No pulmonic regurgitation. Pericardium No pericardial effusion. Aorta Normal size aortic root and proximal ascending aorta. CONCLUSIONS Normal LV size and systolic function with mild concentric LVH. There is mild mitral annular calcification and aortic valve sclerosis without restriction. Right ventricle is of normal size and the right-sided pressures are not significantly elevated. There is mild mitral and tricuspid regurgitation no pericardial effusion. Previewed by: Dr. Oren Blanton MD (Electronically Signed) Final Date: 27 Nov 2024 16:34
[2024-11-27] MEDS: ESCITALOPRAM 10 MG TAB PO SCH (17:29)
[2024-11-27] MEDS: ACETAMINOPHEN TAB 325 MG TAB PO PRN (18:22)
[2024-11-28 05:21] VITALS: TEMP 98.3
[2024-11-28 08:53] VITALS: BP 121/71; PULSE 88; RESP 16
[2024-11-28] MEDS: Apixaban Initiation Dose--VTE 5 MG TAB PO SCH (10:03)
--- NOTE | 2024-11-28 12:08 | P.PN ---
Subjective Progress Note Date: 11/28/24 Principal diagnosis: Shortness of breath. Pulmonary consult dated November 27, 2024. 58-year-old female who was seen by my partner, and sent to the hospital for a CT scan, to rule out pulmonary embolism. The patient has a history of about 3 months worth of increasing shortness of breath, particular on exertion, and pain sometimes sharp, deep inspiration. The CT scan did not show pulmonary embolism, and the patient was admitted to the hospital, started on IV heparin. The IGOR delgado called me yesterday, because initially, they were going to place the patient in the intensive care unit, but after listening to the story, it was clear to me the patient was stable to be admitted to the cardiology floor. Currently, the patient is resting comfortably in room 378. She is on room air. He has an IV running with IV heparin. She denies any shortness of breath, currently, states that the pain when she takes a deep breath, in her chest, has completely gone away. Interestingly, the patient recently had hip surgery, and also recently took 2 long car rides, to see a family member in [place]. Hence, this pulmonary embolism, is likely provoked, from the hip surgery, and due to long car rides. In addition, the patient tells me she really has no significant past medical history. She recently was seen by her family doctor, and treated with breathing treatments, and steroids, without benefit in her shortness of breath. She is a lifelong non-smoker. Current laboratory data includes a white count of 4.7, hemoglobin 12.1, hematocrit 37.8, and a platelet count of 103,000. PTT is 74.1. Her comprehensive metabolic profile is completely normal. Venous Doppler studies of both lower extremities, or both positive for DVT. Chest x-ray was negative. CTA showed bilateral pulmonary emboli, with saddle embolus, no evidence for right heart strain. The patient has been seen by cardiology, and an echocardiogram is currently pending. Progress note dated November 28, 2024. 58-year-old female with a history of pulmonary embolism, and bilateral lower extremity DVTs. The patient was found to have a saddle embolism, without right heart strain. Clinically, she is very stable. She is on room air. She is still on IV heparin. Will start her on Eliquis. Her risk factors for blood clot, include recent hip surgery, as well as 2 trips to [place], in a car, without much mobility and ambulation. No new labs today. Objective - Vital Signs Vital signs: Vital Signs Temp 98.3 F 11/28/24 04:00 Pulse 88 11/28/24 08:52 Resp 16 11/28/24 08:52 BP 121/71 11/28/24 08:52 Pulse Ox 96 11/28/24 08:52 FiO2 Intake & Output 11/27/24 11/28/24 11/28/24 18:59 06:59 18:59 Intake Total 403.815 331.152 246 Balance 403.815 331.152 246 Intake: IV 20 10 Invasive Line 2 20 10 Intake, IV Titration 63.815 71.152 Amount Heparin Sod,Pork in 0.45% 63.815 71.152 NaCl 25,000 unit In 0.45 % NaCl 1 250ml.bag @ 18 UNITS/KG/HR 12.655 mls/hr IV .[id number] [facility] Rx#: [id number] Oral 340 240 236 Other: Voiding Method Toilet Toilet # Voids 2 2 2 - Exam No acute distress, oriented 3. HEENT examination is grossly unremarkable. Mucous membranes are moist. No oral lesions. Neck supple. Full range of motion. No adenopathy thyromegaly or neck vein distention. Cardiovascular examination reveals regular rhythm rate. S1-S2 normal. No S3 or S4. No discernible murmur noted. Lungs reveal clear breath sounds. Breath sounds are equal bilaterally. No adventitious lung sounds including wheezes rhonchi or crackles. Abdomen soft bowel sounds are heard. No masses or tenderness. Extremities are intact. No cyanosis clubbing or edema. Skin is without rash or lesion. Neurologic examination is brief but nonfocal. - Labs CBC & Chem 7: 11/26/24 18:57 11/26/24 18:57 Labs: Abnormal Lab Results - Last 24 Hours (Table) 11/27/24 Range/Units 17:52 APTT 43.3 H (22.0-30.0) sec Assessment and Plan Assessment: Subacute/chronic shortness of breath, and chest pain on deep inspiration, lasting 3 months, secondary to bilateral pulmonary emboli. Bilateral lower extremity DVTs. Recent hip surgery. 2 recent car rides to [place]. History of depression. Lifelong non-smoker Plan: Plan dated November 27, 2024. The patient was seen today in room 378. She was seen by my partner, and sent over for CT angiogram, and with a CT angiogram was read by radiology, and showed bilateral pulmonary emboli, and saddle pulmonary embolism, the patient was directed to the emergency department. Dr. Ambrocio called me and talk to me about this patient. The patient was admitted to the 3 S. floor. The patient is currently on an IV heparin drip. She is really feeling much better. The patient's Doppler that we ordered this morning, showed bilateral DVT. The patient was recently on a car ride to [place] twice, to see a family member. In addition, she states that in June, she had hip surgery. She has been having shortness of breath on exertion, and pain on deep inspiration, for about 3 months. Labs, x-rays, medications are reviewed. We will continue to follow. The patient will follow-up with my partner after discharge. Cardiology has seen the patient. Echocardiogram is pending. CTA did not reveal any right heart strain. Plan dated November 28, 2024. The patient is seen today in room 378. She sitting in a chair next to the hospital bed. She is still on IV heparin. The patient will be transition to [facility]. The patient should be treated for at least 3 months, and she will need follow-up. Additional recommendations and suggestions are forthcoming. The patient's risk factor for blood clot including recent hip surgery, and to long car rides to [place]. The patient admits to not moving about very much, and not stopping frequently on the car rides. All labs, x-rays, and medications are reviewed. Prognosis is guarded. We will continue to follow. From our perspective, the patient could be considered for discharge. Time with Patient: Less than 30
--- NOTE | 2024-11-28 13:55 | P.PN ---
Subjective Progress Note Date: 11/28/24 Reason for Consult (text): Pulmonary embolism. History of present illness: This is a 58-year-old female with no previous cardiac history and does not fol low with a tenter feeder. We have been asked to evaluate the patient for pulmonary embolism. Patient gives history that she had hip replacement surgery done in June 2020 for and she states that since August when she was working with physical therapy she developed shortness of breath. She states she was having difficulty walking due to the shortness of breath. No chest pain or chest pressure no chest tightness. Dr. Rae ordered CTA of the chest which found bilateral pulmonary emboli with saddle embolus. Patient was admitted to the hospital and started on heparin drip. She denies shortness of breath at rest. No dizziness or lightheadedness. Blood pressure 113/73, heart rate 68, pulse ox 96% on room air. Patient is a non-smoker, no alcohol abuse. -EKG: Sinus rhythm with no acute ST-T wave changes. No evidence of right heart strain. -Venous duplex bilateral lower extremities showed acute DVT in the popliteal veins bilaterally. -Laboratory studies: Platelet count 103 otherwise lab work is unremarkable. Troponin is negative x 1. -Home cardiac medications: None 11/28 Patient seen and examined. Patient has been seen by pulmonary medicine and transition from heparin to Eliquis, VTE protocol. Blood pressure 121/71, heart rate 86, pulse ox 96% on room air. Patient continues to deny lightheadedness dizziness, no chest pain. Echocardiogram reveals normal LV size and systolic function with mild concentric LVH. Mild mitral annular calcification and aortic valve sclerosis without restriction. Right ventricle is of normal size and right-sided pressures are not significantly elevated. Mild mitral and tricuspid regurgitation. No pericardial effusion. Physical examination: Gen: This is a 58-year-old female in no acute distress VS: reviewed HEENT: Head is atraumatic, normocephalic. Pupils equal, round. Sclerae is anicteric. NECK: Supple. No JVD. LUNGS: Clear to auscultation. No wheezes or rhonchi. No intercostal retractions. HEART: Regular rate and rhythm. No murmur. ABDOMEN: Soft No tenderness. EXTREMITIES: No pedal edema. No calf tenderness. NEUROLOGICAL: Patient is awake, alert and oriented x3. Assessment: Bilateral saddle PE, no right sided heart strain on echocardiogram Bilateral lower extremity DVT Recent hip surgery Plan: Patient transition to [facility] VTE protocol Consult pulmonary medicine Patient is cleared for discharge from cardiology perspective. Patient will follow-up with Dr. Carmona in 1 to 2 weeks. Nurse practitioner note has been reviewed, I agree with documented findings and plan of care. Patient was seen and examined. Objective - Vital Signs Vital signs: Vital Signs Temp 98.3 F 11/28/24 04:00 Pulse 88 11/28/24 08:52 Resp 16 11/28/24 08:52 BP 121/71 11/28/24 08:52 Pulse Ox 96 11/28/24 08:52 FiO2 Intake & Output 11/27/24 11/28/24 11/28/24 18:59 06:59 18:59 Intake Total 403.815 331.152 10 Balance 403.815 331.152 10 Intake: IV 20 10 Invasive Line 2 20 10 Intake, IV Titration 63.815 71.152 Amount Heparin Sod,Pork in 0.45% 63.815 71.152 NaCl 25,000 unit In 0.45 % NaCl 1 250ml.bag @ 18 UNITS/KG/HR 12.655 mls/hr IV .[id number] [facility] Rx#: [id number] Oral 340 240 Other: Voiding Method Toilet Toilet # Voids 2 2 2 - Labs CBC & Chem 7: 11/26/24 18:57 11/26/24 18:57 Labs: Abnormal Lab Results - Last 24 Hours (Table) 11/27/24 11/27/24 Range/Units 10:32 17:52 APTT 74.1 H 43.3 H (22.0-30.0) sec
--- NOTE | 2024-11-28 16:40 | P.DS ---
Providers Date of admission: 11/26/24 20:40 Attending physician: Stanley Charles Consults: 11/26/24 20:38 Consult Physician Urgent Consulting Provider: [facility] Consult Reason/Comments: Pulmonary embolism Do you want consulting provider notified?: Yes 11/27/24 09:40 Consult Physician Routine Consulting Provider: Chandler Jefferson Consult Reason/Comments: PE Do you want consulting provider notified?: Yes Primary care physician: [facility] Course: Discharge Diagnosis: #Saddle pulmonary embolism without right heart strain, started on Eliquis #History of anxiety and depression Hospital Course: Patient is a 58-year-old female with no significant past medical history has been feeling short of breath from last 4 to 5 months and eventually decided to see attending radiologist Dr. Ramos who order CTA of the chest which was positive for bilateral pulmonary emboli with saddle embolus. Patient reports that she had a right hip surgery done in June 2024 and and more recently she had a long drive close to almost 9 hours in October 2024. Patient otherwise reports no swelling in lower legs. She reports no chest pain, nausea, vomiting, dizziness, acute vision changes. She reports no prior history of DVT, family history of DVT and never been on blood thinners. Initial laboratory workup shows WBC 4.72, hemoglobin 12.1, platelet count 103, sodium 138, potassium 3.6, BUN 30, creatinine 0.77. EKG shows normal sinus rhythm with ventricular rate of 87 bpm, [place] interval 144 ms, QRS duration 96 ms, QTc 412. Venous Doppler history shows positive for DVT in popliteal vein in both right lower extremities. Patient was being followed by pulmonology and cardiology. Patient not complaining of any shortness of breath, chest pain, nausea, vomiting, dizziness, headaches. Patient is otherwise hemodynamically stable and optimized for discharge. Patient to be discharged on apixaban starter pack for 30 days. Patient to follow-up with PCP, cardiology and pulmonology postdischarge. Discharge disposition: Home Vital signs reviewed. Gen: in no apparent distress, resting comfortably in bed Eyes: PERRLA, EOMI, no scleral injection or icterus HENT: normocephalic, atraumatic, good hearing acuity, moist mucous membranes Neck: full range of motion Resp: CTAB, no rales, rhonchi, or wheezes CVS: normal S1 and S2, no murmurs, rubs or gallops, no edema GI: soft, NTTP, ND, no hepatosplenomegaly : no suprapubic tenderness, no CVAT, aranda catheter [is/not] present MSK: no clubbing, no cyanosis, no noted contractures of extremities Skin: no noted rashes, petechiae; temperature of skin is appropriate Neuro: moving all extremities without signs of weakness, CN II-XII intact Psych: cooperative, euthymic mood, insight and judgment intact Dictation was produced using [employer] dictation software. Please excuse any grammatical, word or spelling errors. Plan - Discharge Summary Discharge Rx Participant: No New Discharge Prescriptions: New Apixaban [Eliquis] 5 mg PO BID #13 tab Apixaban [Eliquis] 5 mg PO DAILY #81 tablet Continue Multivitamins, Thera [Multivitamin (formulary)] 1 tab PO DAILY Trospium Chloride [Sanctura] 20 mg PO DAILY Calcium(Unknown Dose) 1 tab PO HS estradioL [Vagifem] 10 mcg VAGINAL TUFR Ciclopirox Olamine [Loprox 0.77% cream] 1 applic TOPICAL BID PRN PRN Reason: flares on face Fish Oil(Unknown Dose) 1 cap PO DAILY Co Q-10(Unknown Dose) 1 cap PO DAILY Magnesium(Unknown Dose) 1 tab PO HS Glucosam/Vimal-Msm1/C/Matthew/Bosw [Glucosamine-Chondroitin Tablet] 1 tab PO DAILY Vitamin D3(Unknown Dose) 1 tab PO HS Fluocinonide 0.05% Solution 1 applic TOPICAL BID PRN PRN Reason: Dry Skin Escitalopram [Lexapro] 10 mg PO DAILY Turmeric(Unknown Dose) 1 tab PO DAILY Discharge Medication List Multivitamins, Thera [Multivitamin (formulary)] 1 tab PO DAILY 06/07/16 [ History] Trospium Chloride [Sanctura] 20 mg PO DAILY 06/07/16 [History] Calcium(Unknown Dose) 1 tab PO HS 11/27/24 [History] Ciclopirox Olamine [Loprox 0.77% cream] 1 applic TOPICAL BID PRN 11/27/24 [ History] Co Q-10(Unknown Dose) 1 cap PO DAILY 11/27/24 [History] Escitalopram [Lexapro] 10 mg PO DAILY 11/27/24 [History] Fish Oil(Unknown Dose) 1 cap PO DAILY 11/27/24 [History] Fluocinonide 0.05% Solution 1 applic TOPICAL BID PRN 11/27/24 [History] Glucosam/Vimal-Msm1/C/Matthew/Bosw [Glucosamine-Chondroitin Tablet] 1 tab PO DAILY 11/27/24 [History] Magnesium(Unknown Dose) 1 tab PO HS 11/27/24 [History] Turmeric(Unknown Dose) 1 tab PO DAILY 11/27/24 [History] Vitamin D3(Unknown Dose) 1 tab PO HS 11/27/24 [History] estradioL [Vagifem] 10 mcg VAGINAL TUFR 11/27/24 [History] Apixaban [Eliquis] 5 mg PO BID #13 tab 11/28/24 [Rx] Apixaban [Eliquis] 5 mg PO DAILY #81 tablet 11/28/24 [Rx] Follow up Appointment(s)/Referral(s): Satish Carmona MD [STAFF PHYSICIAN] - 01/08/25 11:00 am ( ) Chandler Jefferson DO [Doctor of Osteopathic Medicine] - 12/18/24 8:30 am Stanton Justice DO [Primary Care Provider] - 1-2 days Patient Instructions/Handouts: Pulmonary Embolism (DC), Deep Vein Thrombosis (DC), Venous Thromboembolism (DC) Activity/Diet/Wound Care/Special Instructions: Please follow-up with your PCP, attending radiologist and jailer/training officer within 1 to 2 weeks. Please continue to take apixaban (Eliquis) 2 tablets for 7 days and 1 tablet until finish. Discharge Disposition: HOME SELF-CARE
== END 2024-11-28 13:36 | disposition home or self-care (01) | DRG 176 ==
LOC: EC 18:43 → 3SCARD 20:40
PROVIDERS: ADMIT Hospitalist; ATTEND Hospitalist
DX: I26.92 Saddle embolus of pulmonary artery without acute cor pulmonale (principal); I82.433 Acute embolism and thrombosis of popliteal vein, bilateral; F32.A Depression, unspecified; I08.1 Rheumatic disorders of both mitral and tricuspid valves; Z88.5 Allergy status to narcotic agent; Z79.82 Long term (current) use of aspirin; Z86.718 Personal history of other venous thrombosis and embolism; Z96.649 Presence of unspecified artificial hip joint; Z79.899 Other long term (current) drug therapy; Z86.711 Personal history of pulmonary embolism; Z90.710 Acquired absence of both cervix and uterus
CPT/HCPCS: 36415; 80053; 83605; 84484; 85025; 85610; 85730; 93005; 93306; 93970; 96365; 96366; 99285

== ENCOUNTER → 2024-11-26 | Outpatient (CLI) | payer BC, OTHER ==
--- NOTE | 2024-11-26 18:36 | CT ---
EXAMINATION TYPE: CT angio chest DATE OF EXAM: 11/26/2024 6:19 PM COMPARISON: 11/26/2024 CLINICAL INDICATION: Female, 58 years old with history of R06.02 SHORTNESS OF BREATH; shortness of br eath TECHNIQUE/CONTRAST: CTA scan of the thorax is performed with IV Contrast, patient injected with 100 mL of Isovue 370, MIP images are created and reviewed these are created on a separate workstation.. CT DLP: 394 mGycm, Automated exposure control for dose reduction was used. FINDINGS: Lungs/Pleura: No evidence of focal consolidation, pleural effusion or pneumothorax. Airway: Large airways are patent. Heart: Size within normal limits. No significant coronary artery calcifications. Vasculature: Bilateral filling defects within the pulmonary arterial vasculature with saddle pulmonar y embolus present. No evidence for right heart strain. The pulmonary trunk is within normal limits fo r size. Mediastinum: No gross evidence of adenopathy. Musculoskeletal: No acute osseous abnormalities Soft Tissues/lymph nodes: Unremarkable. Lower neck: No significant findings. Upper Abdomen: No significant findings. IMPRESSION: Bilateral pulmonary emboli with saddle embolus also present. Patient should go to the ER for further evaluation. No evidence for right heart strain. Findings to BE communicated to Courtney Ramos MD on 11/26/2024 6:32 PM by Department of radiology. Follow up recommendations for incidental pulmonary nodules, if there are any, are per [employer] or [employer]. https://radiopaedia.org/[email or web address]?lang=us [facility], , 11/26/2024 6:33 PM
== END | disposition home or self-care (01) ==
LOC: RADCTMAIN 17:46
PROVIDERS: ATTEND Internal Medicine
DX: I26.99 Other pulmonary embolism without acute cor pulmonale (principal)
CPT/HCPCS: 71275; Q9967

== ENCOUNTER 2024-12-26 18:35 | Emergency (ER) | payer BC, OTHER ==
[2024-12-26 18:48] VITALS: RESP 16; TEMP 97.9
--- NOTE | 2024-12-26 21:32 | US ---
EXAMINATION TYPE: US venous doppler duplex LE LT DATE OF EXAM: 12/26/2024 9:17 PM COMPARISON: US(11/27/2024) CLINICAL INDICATION: Female, 59 years old with history of pain, hx of DVT; pt was in er about a month ago for positive DVT & PE, currently on Eloquist, Lt calf pain, Pain TECHNIQUE: The lower extremity deep venous system is examined utilizing real time linear array sonog tali with graded compression, color doppler sonography, and spectral doppler. SIDE PERFORMED: Left FINDINGS: VESSELS IMAGED: Common Femoral Vein Deep Femoral Vein Greater Saphenous Vein * Femoral Vein Popliteal Vein Small Saphenous Vein * Proximal Calf Veins (* superficial vessels) Left Leg: There appears to be internal echoes with minimal flow within the Lt Popliteal Veins, non compressible Prox, Mid & distally, color flow seen within Pop v prox, minimal color flow seen within Pop V mid/di stal, minimal spectral flow seen within Pop V dist, (same area of DVT in prior exam) IMPRESSION: 1. Deep venous thrombosis within the left lower extremity. This may be converting to chronic thrombus . [facility], , 12/26/2024 9:30 PM
--- NOTE | 2024-12-26 21:33 | ED ---
General Adult HPI - General Chief complaint: Recheck/Abnormal Lab/Rx Stated complaint: cramp in left calf Time Seen by Provider: 12/26/24 19:47 Source: patient, RN notes reviewed, old records reviewed Mode of arrival: ambulatory Limitations: no limitations - History of Present Illness Initial comments: 59-year-old female with known DVT in the bilateral lower extremities and history of pulmonary embolism presents for evaluation of left calf pain. Patient is on Eliquis twice daily. She has not missed any doses. She has not noticed any swelling. Pain began just prior to arrival. Patient denies any chest pain or dyspnea stating that all of the symptoms have resolved. - Related Data Home Medications Medication Instructions Recorded Confirmed Multivitamins, Thera [Multivitamin 1 tab PO DAILY 06/07/16 11/27/24 (formulary)] Trospium Chloride [Sanctura] 20 mg PO DAILY 06/07/16 11/27/24 Calcium(Unknown Dose) 1 tab PO HS 11/27/24 11/27/24 Ciclopirox Olamine [Loprox 0.77% 1 applic TOPICAL BID PRN 11/27/24 11/27/24 cream] Co Q-10(Unknown Dose) 1 cap PO DAILY 11/27/24 11/27/24 Escitalopram [Lexapro] 10 mg PO DAILY 11/27/24 11/27/24 Fish Oil(Unknown Dose) 1 cap PO DAILY 11/27/24 11/27/24 Fluocinonide 0.05% Solution 1 applic TOPICAL BID PRN 11/27/24 11/27/24 Glucosam/Vimal-Msm1/C/Matthew/Bosw 1 tab PO DAILY 11/27/24 11/27/24 [Glucosamine-Chondroitin Tablet] Magnesium(Unknown Dose) 1 tab PO HS 11/27/24 11/27/24 Turmeric(Unknown Dose) 1 tab PO DAILY 11/27/24 11/27/24 Vitamin D3(Unknown Dose) 1 tab PO HS 11/27/24 11/27/24 estradioL [Vagifem] 10 mcg VAGINAL TUFR 11/27/24 11/27/24 Previous Rx's Medication Instructions Recorded Apixaban [Eliquis] 5 mg PO BID #13 tab 11/28/24 Apixaban [Eliquis] 5 mg PO DAILY #81 tablet 11/28/24 Allergies Allergy/AdvReac Type Severity Reaction Status Date / Time morphine AdvReac Itching Verified 12/26/24 18:48 Review of Systems ROS Statement: Those systems with pertinent positive or pertinent negative responses have been documented in the HPI. ROS Other: All systems not noted in ROS Statement are negative. Past Medical History Past Medical History: Deep Vein Thrombosis (DVT), Pulmonary Embolus (PE) History of Any Multi-Drug Resistant Organisms: None Reported Past Surgical History: Section, Hysterectomy, Joint Replacement Additional Past Surgical History / Comment(s): Jaw surgery; BILAT plantar fascitis, COLONOSCOPY, LT BUNIONECTOMY, hip replacement. Past Anesthesia/Blood Transfusion Reactions: Motion Sickness Past Psychological History: Depression Smoking Status: Never smoker Past Alcohol Use History: Occasional Past Drug Use History: None Reported - Past Family History Mother Family Medical History: Cancer General Exam Limitations: no limitations General appearance: alert, appears intoxicated Head exam: Present: atraumatic, normocephalic Eye exam: Present: normal appearance, PERRL ENT exam: Present: normal exam Neck exam: Present: normal inspection. Absent: tenderness, meningismus Respiratory exam: Present: normal lung sounds bilaterally. Absent: respiratory distress, wheezes Cardiovascular Exam: Present: regular rate, normal rhythm GI/Abdominal exam: Present: soft. Absent: distended, tenderness, guarding Extremities exam: Present: normal inspection, normal capillary refill. Absent: pedal edema, calf tenderness Neurological exam: Present: alert, oriented X3 Psychiatric exam: Present: normal affect, normal mood Skin exam: Present: warm, dry, intact. Absent: cyanosis, diaphoretic Course Vital Signs 12/26/24 18:46 Temperature 97.9 F Pulse Rate 83 Respiratory 16 Rate Blood Pressure 112/72 O2 Sat by Pulse 100 Oximetry Medical Decision Making - Medical Decision Making Was pt. sent in by a medical professional or institution (, PA, [employer], urgent care, hospital, or fpc...) When possible be specific @ -No Did you speak to anyone other than the patient for history (EMS, parent, family, police, friend...)? What history was obtained from this source @ -No Did you review nursing and triage notes (agree or disagree)? Why? @ -I reviewed and agree with nursing and triage notes Were old charts reviewed (outside hosp., previous admission, EMS record, old EKG, old radiological studies, urgent care reports/EKG's, fpc records)? Report findings @ -No old charts were reviewed Differential Musculoskeletal Muscular strain, contusion, ligament sprain, fracture, arthritis, septic arthritis, bursitis, cellulitis, muscle spasm, nerve compression, DVT, arterial occlusion, herpes zoster, electrolyte abnormality, tumor.... This is not meant to be in all inclusive list EKG interpreted by me (3pts min.). @ -As above X-rays interpreted by me (1pt min.). @ -None done CT interpreted by me (1pt min.). @ -None done U/S interpreted by me (1pt. min.). @ -Ultrasound of the left lower extremity is positive for DVT, chronic in nature. I did review these with the radiologist who indicates that these are not worse and likely representing chronic DVTs What testing was considered but not performed or refused? (CT, X-rays, U/S, labs)? Why? @ -None What meds were considered but not given or refused? Why? @ -None Did you discuss the management of the patient with other professionals (professionals i.e. , PA, [employer], lab, RT, psych nurse, social insurance analyst, transportation program director, teacher, inspectors and regulatory officers, case finisher)? Give summary @ -No Was smoking cessation discussed for >3mins.? @ -No Was critical care preformed (if so, how long)? @ -No Were there social determinants of health that impacted care today? How? (Homelessness, low income, unemployed, alcoholism, drug addiction, transportati on, low edu. Level, literacy, decrease access to med. care, senior living, rehab)? @ -No Was there de-escalation of care discussed even if they declined (Discuss DNR or withdrawal of care, Hospice)? DNR status @ -No What co-morbidities impacted this encounter? (DM, HTN, Smoking, COPD, CAD, Cancer, CVA, ARF, Chemo, Hep., AIDS, mental health diagnosis, sleep apnea, morbid obesity)? @ -DVT PE Was patient admitted / discharged? Hospital course, mention meds given and route, prescriptions, significant lab abnormalities, going to OR and other pertinent info. @ -[59-year-old female with known DVT in the left leg, ultrasound is repeated, this is not worse. There is no swelling of the leg. Normal color. Normal pulses. Patient will continue Eliquis and follow-up with her primary care provider. Undiagnosed new problem with uncertain prognosis? @ -No Drug Therapy requiring intensive monitoring for toxicity (Heparin, Nitro, Insulin, Cardizem)? @ -No Were any procedures done? @ -No Diagnosis/symptom? @ -DVT Acute, or Chronic, or Acute on Chronic? @ -Chronic Uncomplicated (without systemic symptoms) or Complicated (systemic symptoms)? @ -Default Side effects of treatment? @ -No Exacerbation, Progression, or Severe Exacerbation? @ -No Poses a threat to life or bodily function? How? (Chest pain, [place], MA, pneumonia, PE, COPD, DKA, ARF, appy, cholecystitis, CVA, Diverticulitis, Homicidal, Suicidal, threat to staff... and all critical care pts) @ -Low risk Disposition Clinical Impression: DVT (deep venous thrombosis) Disposition: HOME SELF-CARE Condition: Fair Instructions (If sedation given, give patient instructions): Deep Vein Thrombosis (ED) Is patient prescribed a controlled substance at d/c from ED?: No Referrals: Stanton Justice DO [Primary Care Provider] - 1-2 days Time of Disposition: 21:39
[2024-12-26 21:51] VITALS: BP 114/67; PULSE 76
== END 2024-12-26 21:50 | disposition home or self-care (01) ==
LOC: EC 18:35
DX: I82.403 Acute embolism and thrombosis of unspecified deep veins of lower extremity, bilateral (principal); Z79.01 Long term (current) use of anticoagulants; Z88.5 Allergy status to narcotic agent
CPT/HCPCS: 99283